=== PATIENT | female | born 1960 | race Caucasian/White ===

== ENCOUNTER 2017-01-26 09:17 | Outpatient (CLI) | payer OTHER ==
--- NOTE | 2017-01-26 11:00 | MMO ---
BILATERAL SCREENING MAMMOGRAMS: Date: 01/26/17 Comparison made to prior exams from 2014 and 2015. HISTORY: History of prior left breast cancer with lumpectomy and chemo with radiation. This patient's mammogram was interpreted with the assistance of computer-aided detection. FINDINGS: There is a heterogeneously dense glandular pattern. There are benign calcifications. Postoperative ch anges in the left breast again noted and appear stable. No suspicious finding or interval change iden tified. Recommend 1 year follow-up. IMPRESSION: BIRADS 2: Benign Finding(s) POS: AUTUMN
== END 2017-01-26 09:18 | disposition home or self-care (01) ==
LOC: SCSMAMMO 09:17
PROVIDERS: ATTEND Family Medicine
DX: Z12.31 Encounter for screening mammogram for malignant neoplasm of breast (principal)
CPT/HCPCS: 77067; G0202

== ENCOUNTER 2017-06-15 12:40 | Outpatient (CLI) | payer OTHER ==
--- NOTE | 2017-06-15 15:54 | RAD ---
ESOPHAGRAM: Date: 06-15-17 History: Dysphasia. Burning in the chest sensation. 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 Cardiac silhouette and pulmonary vasculature are within normal limits. Ther e is mild tenting involving the left hemidiaphragm which may be related to mild scarring at the left lung base. Lungs are otherwise clear. Surgical clips overlie the left axillary region and there is johnson ggestion of left mastectomy. Surgical clips also overlie the right upper quadrant. There is diffuse o steopenia. Esophagram: Normal esophageal peristalsis is noted during the exam. No mucosal irregularity or focal narrowing is seen in the esophagus. A 12.5 mm barium tablet was administered during the exam with only transient hold up to the level of the GE junction. There is no evidence of a hiatal hernia. No gastroesophageal reflux is demonstrated during this exam. IMPRESSION: 1. Normal esophagram without focal narrowing or mucosal irregularity. 2. No evidence of a hiatal hernia. No gastroesophageal reflux is demonstrated during the exam. POS: AUTUMN
== END 2017-06-15 12:41 | disposition home or self-care (01) ==
LOC: RAD 12:40
PROVIDERS: ATTEND Family Medicine
DX: R13.10 Dysphagia, unspecified (principal)
CPT/HCPCS: 74220

== ENCOUNTER 2018-02-08 09:33 | Outpatient (CLI) | payer OTHER | END 2018-02-08 09:34 | disposition home or self-care (01) | LOC: BICMAMMO 09:33 | PROVIDERS: ATTEND Family Medicine | DX: Z12.31 Encounter for screening mammogram for malignant neoplasm of breast (principal) | CPT/HCPCS: 77063; 77067 ==

== ENCOUNTER 2019-02-09 08:58 | Outpatient (CLI) | payer BC ==
--- NOTE | 2019-02-09 09:28 | BD ---
EXAM: DEXA bone density examination HISTORY: Osteoporosis screening COMPARISON: None FINDINGS: L1--bone mineral density 0.948 g/sq cm; T score -0.4. Z score 0.9 L2--bone mineral density 1.006 g/sq cm; T score -0.2; Z score 1.2 L3--bone mineral density 0.991 g/sq cm; T score -0.8; Z score 0.6 L4--bone mineral density 1.112 g/sq cm; T score 0.5, Z score 2.0 Total L1-L4--bone mineral density 1.020 g/sq cm; T score -0.2, Z score 1.2 Left femoral neck--bone mineral density0.681; T score -1.5, Z score -0.2 Total proximal left femur--bone mineral density 0.829; T score -0.9, Z score 0.0 This patient has a 10 year WHO fracture risk of a major osteoporotic fracture of 8.1% and of a hip fr acture of 0.7%. IMPRESSION: Based on the WHO criteria, the patient's bone mineral density is consideredOsteopenic. T he patient is at moderate risk for fracture.
--- NOTE | 2019-02-09 12:00 | MMO ---
Bilateral MAMMO Bilat Screen [facility]. CLINICAL HISTORY: Patient is 58 years old and is seen for screening. The patient has the following family history of breast cancer: sister, at age 53, malignant (generic). The patient has a history of malignant (generic) in the left breast at age 37. The patient has a history of left Ultrasound Guided Core Biopsy at age 37 - malignant and left Lumpectomy at age 37 - malignant. VIEWS: The views performed were: bilateral craniocaudal with tomosynthesis and bilateral mediolateral oblique with tomosynthesis. FILMS COMPARED: The present examination has been compared to prior imaging studies performed at [facility] on 01/26/2017, and at [facility] on 12/26/2014, 01/07/2016 and 02/08/2018. This study has been interpreted with the assistance of computer-aided detection. MAMMOGRAM FINDINGS: The breasts are heterogeneously dense, which could obscure a lesion on mammography. There are no suspicious masses, suspicious calcifications, or new areas of architectural distortion. IMPRESSION: THERE IS NO MAMMOGRAPHIC EVIDENCE OF MALIGNANCY. A ROUTINE FOLLOW-UP MAMMOGRAM IN 1 YEAR IS RECOMMENDED. THE RESULTS OF THIS EXAM WERE SENT TO THE PATIENT. ACR BI-RADS Category 1 - Negative MAMMOGRAPHY NOTE: 1. A negative mammogram report should not delay a biopsy if a dominant of clinically suspicious mass is present. 2. Approximately 10% to 15% of breast cancers are not detected by mammography. 3. Adenosis and dense breasts may obscure an underlying neoplasm. Reported by: TEJAS HALEY MD Electonically Signed: [id number]
== END 2019-02-09 08:59 | disposition home or self-care (01) ==
LOC: BICMAMMO 08:58
PROVIDERS: ATTEND Obstetrics & Gynecology
DX: Z12.31 Encounter for screening mammogram for malignant neoplasm of breast (principal); Z13.820 Encounter for screening for osteoporosis; Z80.3 Family history of malignant neoplasm of breast; Z85.3 Personal history of malignant neoplasm of breast
CPT/HCPCS: 77063; 77067; 77080

== ENCOUNTER 2020-02-14 14:11 | Outpatient (CLI) | payer BC ==
--- NOTE | 2020-02-14 14:56 | MMO ---
Bilateral MAMMO Bilat Screen [facility]. CLINICAL HISTORY: Patient is 59 years old and is seen for screening. The patient has the following family history of breast cancer: sister, at age 53, malignant (generic). The patient has a history of malignant (generic) in the left breast at age 37. The patient has a history of left Ultrasound Guided Core Biopsy at age 37 - malignant and left Lumpectomy at age 37 - malignant. VIEWS: The views performed were: bilateral craniocaudal with tomosynthesis; bilateral mediolateral oblique with tomosynthesis; and left exaggerated craniocaudal. FILMS COMPARED: The present examination has been compared to prior imaging studies performed at [facility] on 01/26/2017, and at [facility] on 01/07/2016, 02/08/2018 and 02/09/2019. This study has been interpreted with the assistance of computer-aided detection. MAMMOGRAM FINDINGS: The breasts are heterogeneously dense, which could obscure a lesion on mammography. Finding 1: There are stable benign appearing calcifications seen in both breasts. There are also vascular calcifications. Finding 2: There are stable post operative changes seen in the left breast. There are no suspicious masses, suspicious calcifications, or new areas of architectural distortion. IMPRESSION: THERE IS NO MAMMOGRAPHIC EVIDENCE OF MALIGNANCY. A ROUTINE FOLLOW-UP MAMMOGRAM IN 1 YEAR IS RECOMMENDED. THE RESULTS OF THIS EXAM WERE SENT TO THE PATIENT. ACR BI-RADS Category 2 - Benign finding MAMMOGRAPHY NOTE: 1. A negative mammogram report should not delay a biopsy if a dominant of clinically suspicious mass is present. 2. Approximately 10% to 15% of breast cancers are not detected by mammography. 3. Adenosis and dense breasts may obscure an underlying neoplasm. Reported by: FLORENTIN AMARO MD Electonically Signed: [id number]
== END 2020-02-14 14:12 | disposition home or self-care (01) ==
LOC: BICMAMMO 14:11
PROVIDERS: ATTEND Family Medicine
DX: Z12.31 Encounter for screening mammogram for malignant neoplasm of breast (principal); Z80.3 Family history of malignant neoplasm of breast; Z85.3 Personal history of malignant neoplasm of breast; Z98.890 Other specified postprocedural states
CPT/HCPCS: 77063; 77067

== ENCOUNTER 2021-02-18 11:24 | Outpatient (CLI) | payer BC | END 2021-02-18 11:25 | disposition home or self-care (01) | LOC: BICMAMMO 11:24 | PROVIDERS: ATTEND Family Medicine | DX: Z12.31 Encounter for screening mammogram for malignant neoplasm of breast (principal); Z85.3 Personal history of malignant neoplasm of breast; Z80.3 Family history of malignant neoplasm of breast; Z98.890 Other specified postprocedural states | CPT/HCPCS: 77063; 77067 ==

== ENCOUNTER 2022-03-24 11:26 | Outpatient (CLI) | payer BC | END 2022-03-24 11:27 | disposition home or self-care (01) | LOC: BICMAMMO 11:26 | PROVIDERS: ATTEND Family Medicine | DX: Z12.31 Encounter for screening mammogram for malignant neoplasm of breast (principal); Z85.3 Personal history of malignant neoplasm of breast; Z98.890 Other specified postprocedural states; Z91.89 Other specified personal risk factors, not elsewhere classified; Z80.3 Family history of malignant neoplasm of breast | CPT/HCPCS: 77063; 77067 ==

== ENCOUNTER 2023-04-08 10:56 | Outpatient (CLI) | payer BC | END 2023-04-08 10:57 | disposition home or self-care (01) | LOC: BICMAMMO 10:56 | PROVIDERS: ATTEND Family Medicine | DX: Z12.31 Encounter for screening mammogram for malignant neoplasm of breast (principal); Z80.3 Family history of malignant neoplasm of breast; Z85.3 Personal history of malignant neoplasm of breast; Z91.89 Other specified personal risk factors, not elsewhere classified; Z98.890 Other specified postprocedural states | CPT/HCPCS: 77063; 77067 ==

== ENCOUNTER 2023-07-07 12:34 | Outpatient (CLI) | payer OTHER | END 2023-07-07 12:35 | disposition home or self-care (01) | LOC: BICMRI 12:34 | PROVIDERS: ATTEND Family Medicine | DX: M50.10 Cervical disc disorder with radiculopathy, unspecified cervical region (principal) | CPT/HCPCS: 72141 ==